=== PATIENT | female | born 1955 | race Caucasian/White ===

== ENCOUNTER → 2016-08-05 | Outpatient (CLI) | payer BC ==
[~2016-08-05] MED LIST: CYAN100020 PO; FRCT/ PO; GABA-112 PO; VITB2100
[2016-08-05 17:46] LABS: BASO % 0.2 %; BASO ABS # 0.01 K/uL (0-0.2); COMPLETE YES; EOS % 1.2 %; HEMATOCRIT 39.5 % (37-47); IG% 0.2 %; LYMPH % 20.5 %; LYMPH ABS # 1.06 K/uL (1.2-3.4); MEAN CELL VOLUME 91.4 fL (80-100); MEAN CORPUSCULAR HEMOGLOBIN 31.9 pg (25-34); MEAN CORPUSCULAR HGB CONC 34.9 g/dl (32-36); MEAN PLATELET VOLUME 9.8 fL (7.4-10.4); MONO % 9.8 %; NEUT % 68.1 %; PLATELET COUNT 219 K/uL (130-400); RED BLOOD COUNT 4.32 M/uL (4.2-5.4); WHITE BLOOD COUNT 5.18 K/uL (4.8-10.8)
== END | disposition home or self-care (01) ==
LOC: C.LABBFT 14:42
PROVIDERS: ATTEND Internal Medicine
DX: Z11.59 Encounter for screening for other viral diseases (principal); R79.9 Abnormal finding of blood chemistry, unspecified; D72.819 Decreased white blood cell count, unspecified

== ENCOUNTER → 2016-08-12 | Outpatient (CLI) | payer BC ==
--- NOTE | 2016-08-12 16:30 | DIAGNOSTIC IMAGING REPORT ---
CHEST 2 VIEWS ROUTINE CLINICAL HISTORY: Shortness of breath COMPARISON STUDY: No previous studies for comparison. FINDINGS: The heart is borderline enlarged. There is no failure. There is no focal pulmonary consolidation. No pleural effusions are visualized.[ IMPRESSION: No active disease in the chest. Electronically signed by: Evens Del Valle M.D. 08/12/2016 4:29 PM Dictated Date/Time: 08/12/2016 4:29 PM
== END | disposition home or self-care (01) ==
LOC: C.RAD1850 15:45
PROVIDERS: ATTEND Internal Medicine
DX: R06.02 Shortness of breath (principal)

== ENCOUNTER → 2016-10-02 | Outpatient (CLI) | payer BC ==
--- NOTE | 2016-10-02 15:15 | DIAGNOSTIC IMAGING REPORT ---
MRI OF THE BRAIN WITHOUT IV CONTRAST CLINICAL HISTORY: Migraine headache. COMPARISON STUDY: No priors. TECHNIQUE: MRI of the brain was performed utilizing various T1 and T2-weighted sequences in the axial, sagittal, and coronal planes. IV contrast was not administered for this examination. FINDINGS: Brain parenchyma: The brain parenchyma is normal in appearance. There is no hemorrhage or mass effect. There is no restricted diffusion to suggest acute ischemia. Chicas-white matter differentiation is preserved. No extra-axial fluid collection is seen. The cerebellar tonsils are normal in configuration. Ventricles, sulci, and cisterns: Normal in configuration. Pituitary and sella: Unremarkable. Intracranial vasculature: Normal flow voids are maintained at the skull base. Orbits: The bony orbits are grossly intact. Orbital contents are normal in appearance. Sinuses and mastoids: Clear. Calvarium: Unremarkable. Cervical cord: Partially visualized cervical spinal cord is normal in morphology and signal intensity. IMPRESSION: No acute intracranial abnormality. Electronically signed by: Dennis Winston M.D. 10/02/2016 3:13 PM Dictated Date/Time: 10/02/2016 3:06 PM
== END | disposition home or self-care (01) ==
LOC: C.MRIBC 14:23
PROVIDERS: ATTEND Psychiatry & Neurology Neurology
DX: G43.909 Migraine, unspecified, not intractable, without status migrainosus (principal); R29.90 Unspecified symptoms and signs involving the nervous system

== ENCOUNTER → 2016-10-30 | Outpatient (CLI) | payer BC ==
[2016-10-30 17:48] LABS: ALT/SGPT 31 U/L (12-78); AST/SGOT 19 U/L (15-37); BLOOD UREA NITROGEN 16 mg/dl (7-18); CALCIUM 9.1 mg/dl (8.5-10.1); CARBON DIOXIDE 30 mmol/L (21-32); CHLORIDE 107 mmol/L (98-107); CREATININE 0.84 mg/dl (0.60-1.20); GLUCOSE 80 mg/dl (70-99); POTASSIUM 4.5 mmol/L (3.5-5.1); SODIUM 143 mmol/L (136-145)
[2016-10-30 17:58] LABS: ALB/GLOB RATIO 1.3 (0.9-2); ALKALINE PHOSPHATASE 124 U/L (45-117)
[2016-10-30 18:10] LABS: LYME DISEASE AB IGM NEG (NEG)
[2016-10-30 18:12] LABS: LYME DISEASE AB IGG NEG (NEG)
== END | disposition home or self-care (01) ==
LOC: C.LABBFT 11:16
PROVIDERS: ATTEND Psychiatry & Neurology Neurology
DX: R41.3 Other amnesia (principal); G43.909 Migraine, unspecified, not intractable, without status migrainosus

== ENCOUNTER → 2016-12-02 | Day surgery (SDC) | payer BC ==
[2016-11-19 13:06] VITALS: Ht 157.5 cm; Wt 72.7 kg
[~2016-12-02] VITALS: Ht 157.5 cm; Wt 72.7 kg
[~2016-12-02] MED LIST changes: +ATROPINE SULFATE 0.1 MG/ML 5ML SYR IV PRN; +EpHEDrine SULFATE INJ 50 MG/ML AMP IV PRN; -GABA-112 PO; +LIDOCAINE HCL 2% 2 ML VIAL (20MG/ML) ONE; +PROPOFOL IV EMULSION 10 MG/ML 20 ML VIAL IV ONE
--- NOTE | 2016-12-02 08:51 | Endo History and Physical ---
History & Physical Date of Service: Dec 02, 2016. Chief Complaint: Screening Referring Physician: Dr. Pascual History of Present Illness 61 yo CF who presents for colonoscopy secondary to history of colon polyps Past Surgical History Hx Cardiac Surgery: No Hx Internal Defibrillator: No Hx Pacemaker: No Hx Abdominal Surgery: Yes (ECTOR, LAPAROSCOPY'S, D&C'S) Hx of Implantable Prosthesis: No Hx Post-Op Nausea and Vomiting: No Hx Cancer Surgery: Yes (MOHS ON NOSE) Hx Thoracic Surgery: No Hx Orthopedic: No Hx Urinary Tract Surgery: No Family History IBD Social History Smoking Status: Former Smoker Hx Substance Use: No Hx Alcohol Use: No Allergies Coded Allergies: Aspirin (Verified Allergy, Unknown, RAPID HEARTBEAT, 12/02/16) Current Medications Reported Home Medications Medications Dose Route/Sig Max Daily Dose Days Date Category Vitamin B12 (Cyanocobalamin) 1,000 Mcg Tab 1 Tab PO QAM 11/19/16 Reported Vital Signs Weight (Kilograms): 72.73 Height (Feet): 5 Height (Inches): 2 Physical Exam General Appearance: WD/WN, no apparent distress Respiratory/Chest: Auscultation: breath sounds normal Cardiovascular: Heart Auscultation: RRR Abdomen: Bowel Sounds: normal Inspection & Palpation: soft, non-distended, no tenderness, guarding & rebound Assessment and Plan Assessment: 61 yo CF who presents for colonoscopy secondary to history of colon polyps Plan: Proceed with colonoscopy.
[2016-12-02 09:01] VITALS: TEMP 36.5
--- NOTE | 2016-12-02 09:47 | GI REPORT ---
Procedure Date: 12/02/2016 9:19 AM Procedure: Colonoscopy Indications: High risk colon cancer surveillance: Personal history of colonic polyps Medicines: Monitored Anesthesia Care Complications: No immediate complications. Estimated Blood Loss: Estimated blood loss: none. Procedure: Pre-Anesthesia Assessment: - Prior to the procedure, a History and Physical was performed, and patient medications and allergies were reviewed. The patient's tolerance of previous anesthesia was also reviewed. The risks and benefits of the procedure and the sedation options and risks were discussed with the patient. All questions were answered, and informed consent was obtained. Prior Anticoagulants: The patient has taken no previous anticoagulant or antiplatelet agents. ASA Grade Assessment: III - A patient with severe systemic disease. After reviewing the risks and benefits, the patient was deemed in satisfactory condition to undergo the procedure. After I obtained informed consent, the scope was passed under direct vision. Throughout the procedure, the patient's blood pressure, pulse, and oxygen saturations were monitored continuously. The scope was introduced through the anus and advanced to the terminal ileum. The colonoscopy was performed without difficulty. The patient tolerated the procedure well. The quality of the bowel preparation was good. The terminal ileum, ileocecal valve, appendiceal orifice, and rectum were photographed. Findings: A 5 mm polyp was found in the sigmoid colon. The polyp was sessile. The polyp was removed with a hot snare. Resection and retrieval were complete. Multiple small-mouthed diverticula were found in the sigmoid colon. Non-bleeding internal hemorrhoids were found during retroflexion. The hemorrhoids were small. Impression: - One 5 mm polyp in the sigmoid colon, removed with a hot snare. Resected and retrieved. - Diverticulosis in the sigmoid colon. - Non-bleeding internal hemorrhoids. Recommendation: - Resume previous diet. - Continue present medications. - Repeat colonoscopy for surveillance based on pathology results. - Return to primary care physician as previously scheduled. Manny Park, DO 12/02/2016 9:46:50 AM This report has been signed electronically. Note Initiated On: 12/02/2016 9:19 AM I attest to the content of the Intraoperative Record and orders documented therein, exceptions below
--- NOTE | 2016-12-02 09:48 | Discharge Instructions ---
Endoscopy Patient Instructions Date / Procedure(s) Performed Dec 02, 2016. Colonoscopy Allergy Information Coded Allergies: Aspirin (Verified Allergy, Unknown, RAPID HEARTBEAT, 12/02/16) Discharge Date / Findings Dec 02, 2016. Colon polyp Diverticulosis Internal hemorrhoids Medication Instructions OK to resume all medications today as prescribed. Medications Dose Route/Sig Max Daily Dose Days Date Category Fioricet (Acetaminophen/Butalbital/Caffeine) 1 Ea Tab 1 Tab PO 12/02/16 Reported Vitamin B-2 (Riboflavin) 100 Mg Tab 400 12/02/16 Reported Vitamin B12 (Cyanocobalamin) 1,000 Mcg Tab 1 Tab PO QAM 11/19/16 Reported Provider Instructions Activity Restrictions - No exercising or heavy lifting for 24 hours. - Do not drink alcohol the day of the procedure. - Do not drive a car or operate machinery until the day after the procedure. - Do not make any important decisions or sign important papers in 24 hours after the procedure. Following Day: - Return to full activity which may include returning to work/school. Diet Start your diet with liquids and light foods (jello, soup, juice, toast). Then eat your usual diet if not nauseated. Treatment For Common After Affects For mild abdominal pain, bloating, or excessive gas: - Rest - Eat lightly - Lie on right side Follow-Up Information Follow-up with Samara as scheduled Anesthesia Information What You Should Know You have had a procedure that required some medicine to reduce anxiety and discomfort. This treatment is called moderate sedation. After receiving the treatment, you may be sleepy, but you will be able to breathe on your own. The effects of the treatment may last for several hours. Follow these instructions along with Activity/Diet recommendations noted above: * Do NOT do anything where dizziness or clumsiness would be dangerous. * Rest quietly at home today, then you can be up and about tomorrow. * Have a responsible person stay with you the rest of today. * You may have had an I.V. today. If so, you may take the dressing off later today. Recommendations Call your doctor if: * Trouble breathing * Continuous vomiting for more than 24 hours * Temperature above 101 degrees * Severe abdominal pain or bloating * Pain not relieved by pain medicine ordered * There is increased drainage or redness from any incision * A large amount of rectal bleeding greater than 2-3 tablespoons. (If you had a polyp/s removed or have hemorrhoids, a small amount of blood - from the rectum is to be expected.) * You have any unanswered questions or concerns. IN THE EVENT OF A SERIOUS EMERGENCY, GO TO THE NEAREST EMERGENCY ROOM Your discharge instructions were prepared by provider Manny Park. Patient Instructions Signature Page Kelli Adan Patient (or Guardian) Signature/Date: I have read and understand the instructions given to me by my caregivers. Caregiver/RN/Doctor Signature/Date: The above-named patient and/or guardian has received patient instructions on this date. + Original Patient Signature Page (only) stays with chart. Please make copy for patient.
--- NOTE | 2016-12-02 10:01 | Anesthesiology Progress Note ---
Anesthesia Post Op Note Date & Time Dec 02, 2016 at 10:01 Vital Signs Pain Intensity: 0 Vital Signs Past 12 Hours Date Time Temp Pulse Resp B/P (MAP) Pulse Ox O2 Delivery O2 Flow Rate FiO2 12/02/16 09:42 72 14 96/59 (71) 95 Room Air 12/02/16 09:01 36.5 70 18 116/80 (92) 96 Room Air Notes Mental Status: alert / awake / arousable, participated in evaluation Pt Amnestic to Procedure: Yes Nausea / Vomiting: adequately controlled Pain: adequately controlled Airway Patency, RR, SpO2: stable & adequate BP & HR: stable & adequate Hydration State: stable & adequate Anesthetic Complications: no major complications apparent
[2016-12-02 10:12] VITALS: BP 125/74; PULSE 74; O2SAT 98
== END | disposition home or self-care (01) ==
LOC: C.GI 08:32
PROVIDERS: ATTEND Internal Medicine
DX: Z12.11 Encounter for screening for malignant neoplasm of colon (principal); D12.5 Benign neoplasm of sigmoid colon; K57.30 Diverticulosis of large intestine without perforation or abscess without bleeding; K64.8 Other hemorrhoids; Z86.010 Personal history of colon polyps; Z83.79 Family history of other diseases of the digestive system; Z87.891 Personal history of nicotine dependence

== ENCOUNTER → 2016-12-25 | Outpatient (CLI) | payer BC ==
[~2016-12-25] MED LIST changes: -ATROPINE SULFATE 0.1 MG/ML 5ML SYR IV PRN; -EpHEDrine SULFATE INJ 50 MG/ML AMP IV PRN; -LIDOCAINE HCL 2% 2 ML VIAL (20MG/ML) ONE; -PROPOFOL IV EMULSION 10 MG/ML 20 ML VIAL IV ONE
--- NOTE | 2016-12-31 07:40 | MAMMOGRAPHY REPORT ---
BILATERAL DIGITAL SCREENING MAMMOGRAM WITH CAD: 12/25/2016 CLINICAL HISTORY: Routine screening. Patient has no complaints. TECHNIQUE: Bilateral CC and MLO views were obtained. Current study was also evaluated with a Compute r Aided Detection (CAD) system. COMPARISON: No prior exams were available for comparison. BREAST COMPOSITION: There are scattered areas of fibroglandular density in both breasts. FINDINGS: There are scattered benign-appearing calcifications bilaterally. No suspicious mass, archi tectural distortion or cluster of microcalcifications is seen. IMPRESSION: ACR BI-RADS CATEGORY 1: NEGATIVE There is no mammographic evidence of malignancy. Prior outside mammograms are currently being reques herminia and if obtained they will be reviewed, compared to the current exam to assess for any more subtle changes, and an addendum will be made to this report. Otherwise, a 1 year screening mammogram is re commended. The patient will receive written notification of the results. Approximately 10% of breast cancers are not detected with mammography. A negative mammographic report should not delay biopsy if a clinically suggestive mass is present. Kya Jensen M.D. ay/:12/30/2016 16:04:52 Cloth Doubling Machine Operator: Joselyn SCOTT(Cj)(Ryan), [facility] letter sent: Normal 1/2 BI-RADS Code: ACR BI-RADS Category 1: Negative
== END | disposition home or self-care (01) ==
LOC: C.MAMM 14:55
PROVIDERS: ATTEND Internal Medicine
DX: Z12.31 Encounter for screening mammogram for malignant neoplasm of breast (principal)

== ENCOUNTER → 2017-02-14 | Outpatient (CLI) | payer BC ==
[2017-02-14 17:48] LABS: CHOLESTEROL/HDL RATIO 2.7
== END | disposition home or self-care (01) ==
LOC: C.LABBFT 12:59
PROVIDERS: ATTEND Internal Medicine
DX: Z13.6 Encounter for screening for cardiovascular disorders (principal)

== ENCOUNTER → 2017-03-20 | Outpatient (CLI) | payer BC ==
[2017-03-20 17:51] LABS: BLOOD UREA NITROGEN 9 mg/dl (7-18); CALCIUM 9.2 mg/dl (8.5-10.1); CARBON DIOXIDE 31 mmol/L (21-32); CHLORIDE 107 mmol/L (98-107); CREATININE 0.87 mg/dl (0.60-1.20); GLUCOSE 89 mg/dl (70-99); POTASSIUM 4.5 mmol/L (3.5-5.1); SODIUM 141 mmol/L (136-145)
== END | disposition home or self-care (01) ==
LOC: C.LABBFT 13:45
PROVIDERS: ATTEND Internal Medicine
DX: I10 Essential (primary) hypertension (principal)

== ENCOUNTER → 2017-08-10 | Outpatient (CLI) | payer BC ==
[2017-08-10 09:12] LABS: BASO % 0.7 %; BASO ABS # 0.02 K/uL (0-0.2); EOS % 2.5 %; EOS ABS # 0.07 K/uL (0-0.5); HEMATOCRIT 39.1 % (37-47); HEMOGLOBIN 13.5 g/dL (12.0-16.0); LYMPH % 25.7 %; LYMPH ABS # 0.71 K/uL (1.2-3.4); MEAN CORPUSCULAR HEMOGLOBIN 31.8 pg (25-34); MEAN CORPUSCULAR HGB CONC 34.5 g/dl (32-36); MEAN PLATELET VOLUME 9.5 fL (7.4-10.4); MONO % 9.8 %; MONO ABS # 0.27 K/uL (0.11-0.59); NEUT % 61.3 %; NEUT ABS # 1.69 K/uL (1.4-6.5); PLATELET COUNT 208 K/uL (130-400); RED CELL DISTRIBUTION WIDTH CV 13.2 % (11.5-14.5); RED CELL DISTRIBUTION WIDTH SD 44.2 fL (36.4-46.3); WHITE BLOOD COUNT 2.76 K/uL (4.8-10.8)
== END | disposition home or self-care (01) ==
LOC: C.LAB 08:18
PROVIDERS: ATTEND Internal Medicine
DX: D72.819 Decreased white blood cell count, unspecified (principal)

== ENCOUNTER → 2017-09-25 | Outpatient (CLI) | payer BC ==
[2017-09-25 16:31] LABS: BASO % 0.2 %; BASO ABS # 0.01 K/uL (0-0.2); EOS % 2.1 %; EOS ABS # 0.09 K/uL (0-0.5); HEMATOCRIT 39.5 % (37-47); HEMOGLOBIN 13.9 g/dL (12.0-16.0); LYMPH % 21.3 %; LYMPH ABS # 0.92 K/uL (1.2-3.4); MEAN CELL VOLUME 92.1 fL (80-100); MEAN CORPUSCULAR HEMOGLOBIN 32.4 pg (25-34); MEAN CORPUSCULAR HGB CONC 35.2 g/dl (32-36); MEAN PLATELET VOLUME 9.9 fL (7.4-10.4); MONO % 9.5 %; MONO ABS # 0.41 K/uL (0.11-0.59); NEUT % 66.9 %; NEUT ABS # 2.88 K/uL (1.4-6.5); PLATELET COUNT 216 K/uL (130-400); RED CELL DISTRIBUTION WIDTH CV 13.5 % (11.5-14.5); RED CELL DISTRIBUTION WIDTH SD 44.8 fL (36.4-46.3); WHITE BLOOD COUNT 4.31 K/uL (4.8-10.8)
== END | disposition home or self-care (01) ==
LOC: C.LABBFT 12:19
PROVIDERS: ATTEND Physician Assistant Medical
DX: D72.819 Decreased white blood cell count, unspecified (principal)

== ENCOUNTER 2024-10-30 11:19 | Observation (INO) ==
--- NOTE | 2024-10-30 11:32 | Emergency Department Note ---
Impression & Plan Chest pain, Leukopenia, Facial droop ED Provider Note NAME: AILIN RUSSELL AGE: 69 SEX: F : 1955 ARRIVES VIA: Walk-In INFORMANT: Patient, ED PROVIDER(S): Abhishek Ruiz MD CHIEF COMPLAINT: Facial droop, chest pain MEDICAL DECISION MAKING: Patient presents due to concern for possible stroke. Patient reportedly was presenting due to concerns for chest pains and associated facial droop. IV was established and blood work was obtained. I did initiate a telestroke consultation while the patient was in CAT scan. The code stroke was initiated by nursing in triage. After discussion with telestroke no TNK. Patient's blood work shows leukopenia with a normal H&H and platelet count kidney functions unremarkable with normal electrolytes. CT head and CT angiography of the head and neck are negative. Patient did have an MRI ordered. I did speak with Dr. Aayush Jimenez who recommended baby aspirin and Plavix 300 which were ordered. Patient was also ordered high-dose statin. I did speak with the on-call hospitalist service and the patient was admitted to medicine service. I did inform the patient the findings. Patient has had clinical improvement. Discussion w/ other healthcare providers: Dr. Nichole [facility] teleneurology Dr. Keller inpatient medicine service Prior /Outside records reviewed: I reviewed part of the primary care visit from Thao Hernandez from March 20, 2023. Patient with prior history of NH CAD valvular disorder and CVA. Differential diagnosis: Infection, dehydration, metabolic abnormality, hypo/hyperglycemia, electrolyte imbalance, anemia, UTI, pneumonia, thyroid dysfunction among others were considered. Diagnostics, as interpreted by me: ECG: Sinus with first-degree AV block, rate of 72, prolonged KS, normal QRS, normal axis no ST elevations. T wave flattening in V2. Repeat EKG interpreted myself Sinus bradycardia, rate of 59 normal intervals normal axis no obvious ST elevations. No significant change from comparison Cardiac monitoring: An order was placed for continuous cardiac monitoring. The monitor shows a rate of 75 with sinus rhythm. Patient was placed on pulse oximetry Medical decision rules: None Imaging studies: I informally interpreted the patient's CT head does not show obvious ICH with formal report to follow. HPI: Patient presents due to concern for possible stroke. Patient noted to have left-sided facial droop in triage which reportedly was worse than her baseline as she does have a known history of prior stroke as well. Patient reports that she had developed some right-sided chest pain that she described as achy dull as well as sharp on the right side with radiation to the neck jaw and arm. The patient states that around this time she thought she had some worsening left- sided weakness as well as facial droop. Patient states that she still does have some mild chest pain but does believe that her droop and weakness have improved. The patient does not take any antiplatelets or anticoagulant medication. No falls or trauma. She does report that she has a history of migraines but is currently without headache. Patient states that her symptoms occurred around 10 AM as she was driving in a car. PAST MEDICAL HISTORY: See Below PAST SURGICAL HISTORY: See Below SOCIAL HISTORY: See Below HOME MEDICATIONS: See Below ALLERGIES: See Below VITALS: See Below PHYSICAL EXAMINATION: GENERAL: NAD, non-toxic. EYE EXAM: Normal conjunctiva. PERRL, no anisocoria and EOM's grossly intact w/o pain. OROPHARYNX: Moist mucus membranes, grossly normal dentition. NECK: Trachea midline, no stridor. Supple, no nuchal rigidity, no adenopathy, non-tender. No signs of meningismus. FROM of the neck with good chin to chest and neck extension. LUNGS: Clear to auscultation. Normal chest wall mechanics. HEART: NSR, no MRG. ABDOMEN: Abdomen soft, non-tender, no masses, no rebound or guarding. BACK: No CVA TTP. SKIN: No rashes and no bruising. UPPER EXTREMITIES: Upper extremities are grossly normal. LOWER EXTREMITIES: Grossly normal, no edema. NEURO EXAM: Awake and alert, follows commands, left-sided facial asymmetry with grimace but able to raise the eyebrows symmetrically, grossly normal speech, moves all 4 extremities. Good diajhe-ei-duhi. Initially weakness against resistance in the left lower extremity but improved with better effort the second time. No sensory deficits throughout. Past Med/Surg History Problem List (Updated 10/31/24 @ 11:16 by Abhishek Ruiz MD) Facial droop (Acute) Leukopenia (Acute) Chest pain (Acute) Numbness and tingling of left leg Hx of arthroscopic knee surgery Operation Date: 03/27/23 p Left Knee Arthroscopy, Partial Medial and Lateral Meniscectomy, chondroplasty medial femoral condyle, cyst Decompression(Left) - Armani Padilla MD Transient ischemic attack (TIA) Most recent episode 11/2022 per patient Follows with Dr. Hernandez Per [place] neurology records, patient has longstanding history of significant migraine headaches and history of hemiplegic migraines in the past." Noted remote stroke hx, no noted TIA hx per [place] neurology visits History of CVA (cerebrovascular accident) 2008 + several years ago Migraine, hemiplegic Urinary incontinence (Acute) Vitamin D deficiency (Chronic) History of colon polyps Pelvic pain in female Pes anserinus bursitis of left knee Pes anserinus tendinitis of left lower extremity Knee clicking Acute medial meniscus tear of left knee Synovial cyst of left popliteal space Leukopenia Medical History GERD (gastroesophageal reflux disease) rare, stable per pt History of kidney stones last episode 2010 Anemia Per records, patient denies Vertigo controlled with prn meclizine Seborrheic keratosis Postmenopausal atrophic vaginitis Osteopenia Leukopenia Chronic hx dating back to 2018 available records, baseline WBC 3-4 range per chart review History of basal cell carcinoma left side of nose, s/p excision IBS (irritable bowel syndrome) controlled, stable per pt HTN (hypertension) controlled, stable per pt Hemiparesis due to old cerebrovascular accident Left sided facial droop and weakness in upper and lower extremities Migraines hemiplegic, follows with [place] neurology Surgical History Nausea and vomiting after administration of anesthetic agent pt states she needs pre-dosed with IV medication History of D&C History of esophagogastroduodenoscopy (EGD) History of colonoscopy History of laparoscopy History of tooth extraction History of incisional hernia repair 2004 Status post Mohs surgery History of cholecystectomy H/O cardiac catheterization 2008- no stents Family History Father Prostate cancer age 73 Alcohol abuse Kidney stones Mother Heart disease Leukemia Cancer lEUKEMIA Hypertension Brother Depression Aunt Breast cancer three aunts Grandmother Myocardial infarction Sister Ovarian cancer 55 yo Kidney stones Thyroid cancer Other FH: gallbladder disease No family history of adverse response to anesthesia No pertinent family history Denies family history of Colorectal cancer Social History Smoking Status: Never smoker Tobacco Type: Cigarettes Age Started Using Tobacco: 15; Age Quit Using Tobacco: 32; packs per day: 0.5; Second Hand Exposure: Yes (IN THE PAST); Do You Dip or Chew Tobacco: No; Hx Alcohol Use: No Hx Substance Use: No Preferred Language: Ukrainian Communication Ability: Effective Hearing Ability: Normal Tubing Tester Required: No Beliefs That Will Affect Care: None marital status: Current Living Situation: Spouse current occupational status: retired current occupation: [employer] Feels Safe at Home: Yes Childhood Exposure to Second-Hand Smoke: Yes Diet: other and regular Diet Comment: Tries to not exceed 1200 calories daily Dental Care, Regularly: Yes Physical Activity Frequency: 1-2 Times per Week Seatbelt Use: always Sunscreen Use: Yes Assistive Devices: Denture - Upper and Glasses Allergies Allergies Allergy/AdvReac Type Severity Reaction Status Date / Time aspirin Allergy Unknown Rapid Verified 10/30/24 14:14 heartbeat bee venom protein (honey bee) Allergy Unknown Hives Verified 10/30/24 14:14 losartan Allergy Unknown Rash, Hives Verified 10/30/24 14:14 Home Meds Home Medications Medication Instructions Recorded Confirmed ascorbic acid 7.5 mg-vit E 7.5 2 tab PO QAM 11/21/21 10/30/24 unit-biotin 1,250 mcg chewable tablet (Hair,Skin,Nails with Biotin) acetaminophen 500 mg tablet 500 mg PO Q6H PRN Pain 10/30/24 10/30/24 amitriptyline 10 mg tablet 10 mg PO DAILY PRN Unknown 10/30/24 10/30/24 Previous Rx's Medication Instructions Recorded epinephrine 0.3 mg/0.3 mL 0.3 mg (0.3 mL) IM ONCE PRN 03/24/24 injection, auto-injector anaphylaxis #1 dose pk meclizine 25 mg tablet 25 mg PO TID PRN dizziness #90 tabs 03/26/24 atorvastatin 40 mg tablet 40 mg PO QAM #30 tabs 10/31/24 clopidogrel 75 mg tablet 75 mg PO QAM #30 tabs 10/31/24 Results & Data (ED) Vital Signs Vital Signs - 24 hr 10/30/24 11:20 10/30/24 11:48 10/30/24 11:48 Temperature 36.6 C Temperature Source Temporal Artery Scan Pulse Rate 70 70 71 Pulse Rate [Left Apical] Respiratory Rate 20 18 Respiratory Effort / Characteristics Non-Labored Respiratory Depth Normal Respiratory Pattern Blood Pressure 160/94 H 160/84 H Blood Pressure [Right Arm] Blood Pressure Mean 116 109 Blood Pressure Mean [Right Arm] Pulse Oximetry 99 Oxygen Delivery Method Room Air Sepsis Recent Fever Within 48 Hours No Sepsis New/Unexplained Change in Mental Status No Sepsis Action Taken by Nursing No Action Required 10/30/24 12:03 Temperature Temperature Source Pulse Rate Pulse Rate [Left Apical] 78 Respiratory Rate 15 Respiratory Effort / Characteristics Non-Labored Spontaneous Respiratory Depth Normal Respiratory Pattern Regular Blood Pressure Blood Pressure [Right Arm] 145/84 H Blood Pressure Mean Blood Pressure Mean [Right Arm] 104 Pulse Oximetry 97 Oxygen Delivery Method Room Air Sepsis Recent Fever Within 48 Hours Sepsis New/Unexplained Change in Mental Status Sepsis Action Taken by Intermediate Medications Current Medication List: was personally reviewed by me Laboratory Data Attestation: I reviewed the patient's lab results. 10/30/24 11:34 10/30/24 11:34 Lab Results 10/30/24 10/30/24 Range/Units 11:34 11:40 WBC 3.02 L (4.8-10.8) K/ul RBC 4.47 (4.20-5.40) M/uL Hgb 14.1 (12.0-16.0) g/dl POC Hgb 13.9 (12.0-16.0) g/dl Hct 41.2 (37.0-47.0) % POC Hct 41 (37-47) % MCV 92.2 (80.0-100.0) fL MCH 31.5 (25.0-34.0) pg MCHC 34.2 (32.0-36.0) g/dL RDW Std Deviation 40.9 (36.4-46.3) fL RDW Coeff of Michelle 12.2 (11.5-14.5) % Plt Count 194 (130-400) K/uL MPV 9.4 (9.4-12.4) fL Immature Gran % (Auto) 0.3 % Neut % (Auto) 54.7 % Lymph % (Auto) 29.8 % [place] % (Auto) 10.9 % Eos % (Auto) 3.6 % Baso % (Auto) 0.7 % Neut # (Auto) 1.65 (1.40-6.50) K/uL Lymph # (Auto) 0.90 L (1.20-3.40) K/uL [place] # (Auto) 0.33 (0.11-0.59) K/uL Eos # (Auto) 0.11 (0.00-0.50) K/uL Baso # (Auto) 0.02 (0.00-0.20) K/uL Immature Gran # (Auto) 0.01 (0.01-0.20) K/uL PT 10.2 (9.0-12.0) Seconds INR 0.9 (0.9-1.1) APTT 26 (21-31) Seconds PTT Ratio 1.0 POC Sodium 141 (135-144) mmol/L Sodium 141 (136-145) mmol/L POC Potassium 4.0 (3.3-5.0) mmol/L Potassium 4.0 (3.5-5.1) mmol/L POC Chloride 104 (101-112) mmol/L Chloride 107 (98-107) mmol/L Carbon Dioxide 29 (21-32) mmol/L POC Total CO2 25 (24-31) mmol/L Anion Gap 5 (3-11) POC Anion Gap 17.0 (16-25) mmol/L POC BUN 14 (7-18) mg/dl BUN 15 (6-23) mg/dl Creatinine 0.86 (0.6-1.2) mg/dl POC Creatinine 0.9 (0.6-1.3) mg/dl Est Cr Clr Drug Dosing 55.0 ml/min eGFR 73.54 BUN/Creatinine Ratio 17.4 (10-20) Glucose 83 (70-99(Fasting)) mg/dl POC Glucose (other) 80 (70-99) mg/dl Calcium 9.5 (8.6-10.3) mg/dl POC Ioniz Calcium Camryn 1.25 (1.12-1.32) mmol/l Magnesium 2.1 (1.7-2.4) mg/dl Total Bilirubin 0.9 (0.2-1.0) mg/dl AST 22 (13-39) U/L ALT 17 (7-52) U/L Alkaline Phosphatase 99 (34-104) U/L Troponin I High Sens 3.6 (0-14) pg/ml Total Protein 7.1 (6.0-8.3) gm/dl Albumin 4.3 (3.4-5.0) gm/dl Globulin 2.8 (2.5-4.0) gm/dl Albumin/Globulin Ratio 1.5 (0.9-2) Administered Medications Acetaminophen (Acetaminophen 325 Mg Tab) 650 mg PO Q4H PRN PRN Reason: pain/fever Stop: 11/29/24 12:27 Last Admin: 10/31/24 08:07 Dose: 650 mg Documented By: JUAN Amitriptyline HCl (Amitriptyline Hcl 10 Mg Tab) 10 mg PO DAILY [facility] Stop: 11/30/24 08:59 Last Admin: 10/31/24 08:07 Dose: 10 mg Documented By: JUAN Atorvastatin Calcium (Atorvastatin 40 Mg Tab) [address] [facility] Stop: 11/30/24 08:59 Last Admin: 10/31/24 08:07 Dose: 40 mg Documented By: JUAN Clopidogrel Bisulfate (Clopidogrel Bisulfate 75 Mg Tab) [address] [facility] Stop: 11/30/24 08:59 Last Admin: 10/31/24 08:07 Dose: 75 mg Documented By: JUAN Heparin Sodium (Porcine) (Heparin Sod 5,000 Unit/0.5 Ml Vial) 5,000 units SQ Q8 [facility] Stop: 11/29/24 13:59 Last Admin: 10/31/24 05:53 Dose: 5,000 units Documented By: Admin: 10/30/24 21:10 Dose: 5,000 units Documented By: Admin: 10/30/24 15:56 Dose: 5,000 units Documented By: JUAN Discontinued Medications Atorvastatin Calcium (Atorvastatin 40 Mg Tab) 80 mg PO NOW STA Stop: 10/30/24 12:10 Last Admin: 10/30/24 12:26 Dose: 80 mg Documented By: BERNICE Clopidogrel Bisulfate (Clopidogrel Bisulfate 300 Mg Tab) 300 mg PO NOW STA Stop: 10/30/24 12:10 Last Admin: 10/30/24 12:25 Dose: 300 mg Documented By: BERNICE Ioversol (Optiray 320 125ml) 119 ml IV ONCE ONE Stop: 10/30/24 11:38 Last Admin: 10/30/24 11:37 Dose: 119 ml Documented By: ANGELICA Imaging Data Radiologist's Impression: Head CT 10/30/24 11:32 CT angio head w con, CT angio neck with con, CT head/brain wo con CLINICAL HISTORY: 69 years-old Female with neuro deficit, acute stroke suspected. Acute stroke like symptoms COMPARISON STUDY: Brain MRI 10/02/2016 TECHNIQUE: Unenhanced axial CT scan of the brain is performed. Subsequently, following the IV administration of 119 cc of Optiray, CT angiogram of the head and neck was performed from the aortic arch to the skull apex. Images are reviewed in the axial, sagittal, and coronal planes. 3-D MIPS images are created and assessed. IV contrast was administered without complication. All measurements were obtained according to NASCET criteria. A dose lowering technique was utilized adhering to the principles of ALARA. CT DOSE: 895.81 mGy.cm FINDINGS: CT BRAIN: There is no acute intracranial hemorrhage, midline shift, hydrocephalus, intracranial mass, territorial ischemia or abnormal extra-axial collections. No abnormal intra-axial or extra-axial enhancement. There is an 11 mm superior right frontal cortically based hypodense focus on image 20 series 2, unchanged from 2018. Mastoid air cells and middle ear cavities are clear. No calvarial fracture. Paranasal sinuses are clear. CT ANGIOGRAM OF THE HEAD AND NECK: 4 mm saccular outpouching involves the aortic arch on image 10 series 7. Patency of the innominate and imaged subclavian arteries. The common carotid arteries are patent. Patent internal carotid arteries. The middle and anterior cerebral arteries are patent. The bilateral anterior and middle cerebral arteries are also patent. The vertebrobasilar system and posterior cerebral arteries are widely patent. Dominant right vertebral artery. There is no high-grade stenosis, or proximal branch occlusion identified. Dural sinuses appear patent. Lung apices appear clear. Small hypodense right-sided thyroid nodules, most of which are subcentimeter. Changes of the cervical spine. Small foci of polypoid mucosal thickening within the maxillary sinuses. IMPRESSION: 1. No acute intracranial abnormality. 2. Unremarkable CTA of the head and neck. ACT 112: Negative or not required by law. The above report was generated using voice recognition software. It may contain grammatical, syntax or spelling errors. Electronically signed by: Pavan Cano M.D. 10/30/2024 12:05 PM Head CTA 10/30/24 11:32 CT angio head w con, CT angio neck with con, CT head/brain wo con CLINICAL HISTORY: 69 years-old Female with neuro deficit, acute stroke suspected. Acute stroke like symptoms COMPARISON STUDY: Brain MRI 10/02/2016 TECHNIQUE: Unenhanced axial CT scan of the brain is performed. Subsequently, following the IV administration of 119 cc of Optiray, CT angiogram of the head and neck was performed from the aortic arch to the skull apex. Images are reviewed in the axial, sagittal, and coronal planes. 3-D MIPS images are created and assessed. IV contrast was administered without complication. All measurements were obtained according to NASCET criteria. A dose lowering technique was utilized adhering to the principles of ALARA. CT DOSE: 895.81 mGy.cm FINDINGS: CT BRAIN: There is no acute intracranial hemorrhage, midline shift, hydrocephalus, intracranial mass, territorial ischemia or abnormal extra-axial collections. No abnormal intra-axial or extra-axial enhancement. There is an 11 mm superior right frontal cortically based hypodense focus on image 20 series 2, unchanged from 2018. Mastoid air cells and middle ear cavities are clear. No calvarial fracture. Paranasal sinuses are clear. CT ANGIOGRAM OF THE HEAD AND NECK: 4 mm saccular outpouching involves the aortic arch on image 10 series 7. Patency of the innominate and imaged subclavian arteries. The common carotid arteries are patent. Patent internal carotid arteries. The middle and anterior cerebral arteries are patent. The bilateral anterior and middle cerebral arteries are also patent. The vertebrobasilar system and posterior cerebral arteries are widely patent. Dominant right vertebral artery. There is no high-grade stenosis, or proximal branch occlusion identified. Dural sinuses appear patent. Lung apices appear clear. Small hypodense right-sided thyroid nodules, most of which are subcentimeter. Changes of the cervical spine. Small foci of polypoid mucosal thickening within the maxillary sinuses. IMPRESSION: 1. No acute intracranial abnormality. 2. Unremarkable CTA of the head and neck. ACT 112: Negative or not required by law. The above report was generated using voice recognition software. It may contain grammatical, syntax or spelling errors. Electronically signed by: Pavan Cano M.D. 10/30/2024 12:05 PM Neck CTA 10/30/24 11:32 CT angio head w con, CT angio neck with con, CT head/brain wo con CLINICAL HISTORY: 69 years-old Female with neuro deficit, acute stroke suspected. Acute stroke like symptoms COMPARISON STUDY: Brain MRI 10/02/2016 TECHNIQUE: Unenhanced axial CT scan of the brain is performed. Subsequently, following the IV administration of 119 cc of Optiray, CT angiogram of the head and neck was performed from the aortic arch to the skull apex. Images are reviewed in the axial, sagittal, and coronal planes. 3-D MIPS images are created and assessed. IV contrast was administered without complication. All measurements were obtained according to NASCET criteria. A dose lowering technique was utilized adhering to the principles of ALARA. CT DOSE: 895.81 mGy.cm FINDINGS: CT BRAIN: There is no acute intracranial hemorrhage, midline shift, hydrocephalus, intracranial mass, territorial ischemia or abnormal extra-axial collections. No abnormal intra-axial or extra-axial enhancement. There is an 11 mm superior right frontal cortically based hypodense focus on image 20 series 2, unchanged from 2018. Mastoid air cells and middle ear cavities are clear. No calvarial fracture. Paranasal sinuses are clear. CT ANGIOGRAM OF THE HEAD AND NECK: 4 mm saccular outpouching involves the aortic arch on image 10 series 7. Patency of the innominate and imaged subclavian arteries. The common carotid arteries are patent. Patent internal carotid arteries. The middle and anterior cerebral arteries are patent. The bilateral anterior and middle cerebral arteries are also patent. The vertebrobasilar system and posterior cerebral arteries are widely patent. Dominant right vertebral artery. There is no high-grade stenosis, or proximal branch occlusion identified. Dural sinuses appear patent. Lung apices appear clear. Small hypodense right-sided thyroid nodules, most of which are subcentimeter. Changes of the cervical spine. Small foci of polypoid mucosal thickening within the maxillary sinuses. IMPRESSION: 1. No acute intracranial abnormality. 2. Unremarkable CTA of the head and neck. ACT 112: Negative or not required by law. The above report was generated using voice recognition software. It may contain grammatical, syntax or spelling errors. Electronically signed by: Pavan Cano M.D. 10/30/2024 12:05 PM Chest X-Ray 10/30/24 11:51 XR chest 1V portable HISTORY: 69 years-old Female chest pain acute chest pain COMPARISON: 12/26/2022 TECHNIQUE: AP view of the chest FINDINGS: Cardiac silhouette is upper limits of normal in size. No pneumothorax, pleural effusion, airspace consolidation or pulmonary edema. Mild linear left basilar atelectasis/scarring. Surgical clip of the right upper quadrant abdomen. Bones appear grossly intact. IMPRESSION: No acute process. ACT 112: Negative or not required by law. The above report was generated using voice recognition software. It may contain grammatical, syntax or spelling errors. Electronically signed by: Pavan Cano M.D. 10/30/2024 12:29 PM Brain MRI 10/30/24 12:09 MRI of the brain performed without IV contrast History: Facial droop. Comparison: 05/01/2018 Technique: Sagittal T1-weighted and axial T2-weighted, T2/FLAIR and diffusion-weighted with ADC map images of the brain were obtained without IV contrast. Findings: No evidence for intracranial mass lesion, mass-effect, midline shift, or abnormal extra-axial fluid collection. The ventricles and sulci are within normal limits for age. No abnormally reduced diffusion or evidence for acute infarct. Normal intravascular flow voids. Impression: Normal brain MRI Electronically signed by Beto Fernandes 10-30-2024 2:20 PM Discharge Plan Visit Data Chief Complaint: Stroke Alert Stated Complaint: CHEST PAIN, R ARM PAIN, NAUSEA, FACE NUMB ED Provider: Abhishek Ruiz Discharge Problem: Chest pain, Leukopenia, Facial droop Patient Disposition: Admitted As Inpatient Condition: Good Discharge Instructions Interventions: ED Discharge Assessment Last Done: 10/30/24 14:42 Discharge Problem: Chest pain Qualifiers: Chest pain type: unspecified Qualified Code(s): R07.9 - Chest pain, unspecified Leukopenia Qualifiers: Leukopenia type: unspecified Qualified Code(s): D72.819 - Decreased white blood cell count, unspecified
[2024-10-30] MEDS: OPTIRAY 320 125ml IV ONE (11:37)
[2024-10-30 11:50] LABS: Basophils # (auto) 0.02 K/uL (0.00-0.20); Basophils % (auto) 0.7 %; Eosinophils # (auto) 0.11 K/uL (0.00-0.50); Eosinophils % (auto) 3.6 %; Hematocrit (blood only) 41.2 % (37.0-47.0); Hemoglobin 14.1 g/dl (12.0-16.0); Immature Granulocytes # (auto) 0.01 K/uL (0.01-0.20); Immature Granulocytes % (auto) 0.3 %; Lymphocytes % (auto) 29.8 %; Mean Corpuscular Hemoglobin 31.5 pg (25.0-34.0); Mean Corpuscular Hgb Conc 34.2 g/dL (32.0-36.0); Mean Corpuscular Volume 92.2 fL (80.0-100.0); Mean Platelet Volume 9.4 fL (9.4-12.4); Monocytes # (auto) 0.33 K/uL (0.11-0.59); Monocytes % (auto) 10.9 %; Neutrophils # (auto) 1.65 K/uL (1.40-6.50); Neutrophils % (auto) 54.7 %; Platelet Count 194 K/uL (130-400); RDW Coefficient of Variation 12.2 % (11.5-14.5); RDW Standard Deviation 40.9 fL (36.4-46.3); Red Blood Count 4.47 M/uL (4.20-5.40); White Blood Count 3.02 K/ul (4.8-10.8)
[2024-10-30 11:52] LABS: iSTAT Creatinine 0.9 mg/dl (0.6-1.3); iSTAT Hemoglobin 13.9 g/dl (12.0-16.0); iSTAT Ionized Calcium 1.25 mmol/l (1.12-1.32)
--- NOTE | 2024-10-30 12:08 | CT Scan Report ---
CT angio head w con, CT angio neck with con, CT head/brain wo con CLINICAL HISTORY: 69 years-old Female with neuro deficit, acute stroke suspected. Acute stroke lik e symptoms COMPARISON STUDY: Brain MRI 10/02/2016 TECHNIQUE: Unenhanced axial CT scan of the brain is performed. Subsequently, following the IV adminis tration of 119 cc of Optiray, CT angiogram of the head and neck was performed from the aortic arch to the skull apex. Images are reviewed in the axial, sagittal, and coronal planes. 3-D MIPS images are created and assessed. IV contrast was administered without complication. All measurements were obtain ed according to NASCET criteria. A dose lowering technique was utilized adhering to the principles of ALARA. CT DOSE: 895.81 mGy.cm FINDINGS: CT BRAIN: There is no acute intracranial hemorrhage, midline shift, hydrocephalus, intracranial mass, territori al ischemia or abnormal extra-axial collections. No abnormal intra-axial or extra-axial enhancement. There is an 11 mm superior right frontal cortically based hypodense focus on image 20 series 2, uncha nged from 2018. Mastoid air cells and middle ear cavities are clear. No calvarial fracture. Paranasal sinuses are clear. CT ANGIOGRAM OF THE HEAD AND NECK: 4 mm saccular outpouching involves the aortic arch on image 10 series 7. Patency of the innominate an d imaged subclavian arteries. The common carotid arteries are patent. Patent internal carotid arterie s. The middle and anterior cerebral arteries are patent. The bilateral anterior and middle cerebral a rteries are also patent. The vertebrobasilar system and posterior cerebral arteries are widely patent . Dominant right vertebral artery. There is no high-grade stenosis, or proximal branch occlusion iden tified. Dural sinuses appear patent. Lung apices appear clear. Small hypodense right-sided thyroid nodules, most of which are subcentimete r. Changes of the cervical spine. Small foci of polypoid mucosal thickening within the maxillary sinu ses. IMPRESSION: 1. No acute intracranial abnormality. 2. Unremarkable CTA of the head and neck. ACT 112: Negative or not required by law. The above report was generated using voice recognition software. It may contain grammatical, syntax o r spelling errors. Electronically signed by: Pavan Cano M.D. 10/30/2024 12:05 PM
[2024-10-30 12:17] LABS: INR 0.9 (0.9-1.1); Partial Thromboplastin Time 26 Seconds (21-31); Prothrombin Time 10.2 Seconds (9.0-12.0)
[2024-10-30 12:21] LABS: Albumin Globulin Ratio 1.5 (0.9-2); Albumin Level 4.3 gm/dl (3.4-5.0); BUN Creatinine Ratio 17.4 (10-20); Bilirubin,Total 0.9 mg/dl (0.2-1.0); Calcium 9.5 mg/dl (8.6-10.3); Globulin 2.8 gm/dl (2.5-4.0); Magnesium 2.1 mg/dl (1.7-2.4); Total Protein 7.1 gm/dl (6.0-8.3)
[2024-10-30] MEDS: CLOPIDOGREL BISULFATE 300 MG TAB PO STA (12:25)
[2024-10-30] MEDS: ATORVASTATIN 40 MG TAB PO STA (12:26)
[2024-10-30 12:28] LABS: Troponin I High Sensitivity 3.6 pg/ml (0-14)
--- NOTE | 2024-10-30 12:30 | XRay Report ---
XR chest 1V portable HISTORY: 69 years-old Female chest pain acute chest pain COMPARISON: 12/26/2022 TECHNIQUE: AP view of the chest FINDINGS: Cardiac silhouette is upper limits of normal in size. No pneumothorax, pleural effusion, airspace con solidation or pulmonary edema. Mild linear left basilar atelectasis/scarring. Surgical clip of the ri ght upper quadrant abdomen. Bones appear grossly intact. IMPRESSION: No acute process. ACT 112: Negative or not required by law. The above report was generated using voice recognition software. It may contain grammatical, syntax o r spelling errors. Electronically signed by: Pavan Cano M.D. 10/30/2024 12:29 PM
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
--- NOTE | 2024-10-30 13:37 | XCELERA ---
[id number]
--- NOTE | 2024-10-30 13:59 | Electrocardiogram Report ---
Test Reason : Blood Pressure : */* mmHG Vent. Rate : 72 BPM Atrial Rate : 72 BPM P-R Int : 202 ms QRS Dur : 80 ms QT Int : 398 ms P-R-T Axes : 69 17 59 degrees QTcB Int : 435 ms Normal sinus rhythm Poor R wave progression, consider anterior VT vs. lead placement vs. LVH Abnormal ECG When compared with ECG of 11-Dec-2019 18:37, No significant change was found Confirmed by Doug Gutiérrez ([id number]) on 10/30/2024 1:59:18 PM Referred By: REFERRED SELF Confirmed By: Doug Gutiérrez
--- NOTE | 2024-10-30 14:00 | Electrocardiogram Report ---
Test Reason : Blood Pressure : */* mmHG Vent. Rate : 59 BPM Atrial Rate : 59 BPM P-R Int : 168 ms QRS Dur : 78 ms QT Int : 428 ms P-R-T Axes : 40 2 40 degrees QTcB Int : 423 ms Sinus bradycardia Poor R wave progression, consider anterior FL vs. lead placement vs. LVH Abnormal ECG When compared with ECG of 30-Oct-2024 11:44, (unconfirmed) No significant change was found Confirmed by Doug Gutiérrez ([id number]) on 10/30/2024 1:59:56 PM Referred By: REFERRED SELF Confirmed By: Doug Gutiérrez
--- NOTE | 2024-10-30 14:20 | Magnetic Resonance Report ---
MRI of the brain performed without IV contrast History: Facial droop. Comparison: 05/01/2018 Technique: Sagittal T1-weighted and axial T2-weighted, T2/FLAIR and diffusion-weighted with ADC map images of the brain were obtained without IV contrast. Findings: No evidence for intracranial mass lesion, mass-effect, midline shift, or abnormal extra-axial fluid collection. The ventricles and sulci are within normal limits for age. No abnormally reduced diffusion or evidence for acute infarct. Normal intravascular flow voids. Impression: Normal brain MRI Electronically signed by Beto Fernandes 10-30-2024 2:20 PM
[2024-10-30] MEDS: HEPARIN SOD 5,000 UNIT/0.5 ML VIAL SQ SCH (15:56)
[2024-10-31 07:55] VITALS: RESP 20
[2024-10-31] MEDS: CLOPIDOGREL BISULFATE 75 MG TAB PO SCH (08:07)
[2024-10-31] MEDS: AMITRIPTYLINE HCL 10 MG TAB PO SCH (08:07)
[2024-10-31] MEDS: ATORVASTATIN 40 MG TAB PO SCH (08:07)
[2024-10-31] MEDS: ACETAMINOPHEN 325 MG TAB PO PRN (08:07)
[2024-10-31 10:28] VITALS: PULSE 65; TEMP 97.3; O2SAT 97
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
[2024-10-31 11:07] VITALS: BP 108/69
[2024-10-31] MEDS: MECLIZINE HCL 25 MG TAB PO PRN (11:25)
== END 2024-10-31 11:44 | disposition home or self-care (01) ==
LOC: 2N 11:19 → ED 11:19 → 2N 14:42